=== PATIENT | female | born 1990 | race Caucasian/White ===

== ENCOUNTER 2017-06-18 09:42 | Emergency (ER) | payer BC ==
[2017-06-18 11:04] VITALS: BP 125/85
[2017-06-18] MEDS ORDERED: Acetaminophen TAB* 325 MG PO ONE (11:06)
--- NOTE | 2017-06-18 12:18 | UC ---
Throat Pain/Nasal Etienne HPI - HPI Summary HPI Summary: Patient woke up with severe sore throat. hard to swollow - History of Current Complaint Chief Complaint: UCGeneralIllness Stated Complaint: ST Time Seen by Provider: 06/18/17 12:08 Hx Obtained From: Patient Hx Last Menstrual Period: 05/29/17 ?: No Onset/Duration: Sudden Onset, Lasting Hours Severity: Moderate Associated Signs & Symptoms: Positive: Dysphagia - Allergies/Home Medications Allergies/Adverse Reactions: Allergies Allergy/AdvReac Type Severity Reaction Status Date / Time Cephalexin [From Keflex] Allergy Severe Hives Verified 06/18/17 10:59 Penicillins Allergy Severe Hives Verified 06/18/17 10:59 PMH/Surg Hx/FS Hx/Imm Hx Previously Healthy: Yes - Surgical History Surgical History: Yes Surgery Procedure, Year, and Place: D & C 2011; wisdom teeth - Family History Known Family History: Negative: Diabetes - Social History Alcohol Use: Occasionally Substance Use Type: None Smoking Status (MU): Never Smoked Tobacco - Immunization History Most Recent Influenza Vaccination: Not the Season Review of Systems Constitutional: Fever Skin: Rash ENT: Sore Throat Respiratory: Negative Cardiovascular: Negative Gastrointestinal: Negative Genitourinary: Negative Motor: Negative Neurovascular: Negative Musculoskeletal: Negative Neurological: Negative Psychological: Negative Is Patient Immunocompromised?: No All Other Systems Reviewed And Are Negative: Yes Physical Exam Triage Information Reviewed: Yes Appearance: Well-Appearing, Well-Nourished, Pain Distress Vital Signs: Initial Vital Signs Temp 99.6 F 06/18/17 10:58 Pulse 93 06/18/17 10:58 Resp 16 06/18/17 10:58 BP 125/85 06/18/17 10:58 Pulse Ox 100 06/18/17 10:58 Vital Signs Reviewed: Yes Eye Exam: Normal ENT Exam: Normal ENT: Positive: Pharyngeal erythema, Tonsillar swelling Dental Exam: Normal Neck exam: Normal Neck: Positive: Supple, Nontender, No Lymphadenopathy Respiratory Exam: Normal Respiratory: Positive: Chest non-tender, Lungs clear, Normal breath sounds Cardiovascular Exam: Normal Cardiovascular: Positive: RRR, No Murmur, Pulses Normal Abdominal Exam: Normal Abdomen Description: Positive: Nontender, No Organomegaly, Soft Bowel Sounds: Positive: Present Musculoskeletal Exam: Normal Neurological Exam: Normal Psychological Exam: Normal Skin Exam: Normal Throat Pain/Nasal Course/Dx - Course Course Of Treatment: hx obtained, exam performed ,meds reviewed rapid strep positive - Differential Dx/Diagnosis Differential Diagnosis/HQI/PQRI: Cody's Angina, Otitis Media, Pharyngitis, Sinusitis Provider Diagnoses: strep pharnygitis Discharge - Discharge Plan Condition: Stable Disposition: HOME Prescriptions: Azithromyxin JACOBY (NF) [Z-Jacoby (Zithromax) 250 mg tabs #6] 2 tab PO .TODAY, THEN 1 DAILY #6 tab Patient Education Materials: Strep Throat (ED) Referrals: Gilberto Phillips MD [Primary Care Provider] - Additional Instructions: 1, Increase fluid intake and get plenty of rest. 2. Take the medication as prescribed.
== END 2017-06-18 12:18 | disposition home or self-care (01) ==
LOC: UCCORT 09:42
DX: J02.0 Streptococcal pharyngitis (principal); Z88.1 Allergy status to other antibiotic agents; Z88.0 Allergy status to penicillin
CPT/HCPCS: 87651; 99212; A9270-GY; G0463